=== PATIENT | female | born 1970 | race Caucasian/White ===

== ENCOUNTER 2017-01-28 20:34 | Inpatient (IN) | payer MEDICAID, OTHER ==
[~2017-01-28] VITALS: Ht 147.3 cm; Wt 58.5 kg
[~2017-01-28 20:34] MED LIST: DIVA500T35 PO; DIVA500T69 PO; PALI156D IM
[2017-01-28] MEDS ORDERED: SERT50TA12 PO (20:43)
[2017-01-28 20:57] LABS: BASOPHILS # (AUTO) 0.06 K/uL (0.00-0.20); BASOPHILS % (AUTO) 0.7 % (0.0-2.0); EOSINOPHILS # (AUTO) 0.09 K/uL (0.00-0.70); EOSINOPHILS % (AUTO) 0.95 % (1.0-6.0); HEMATOCRIT 42.1 % (36-46); HEMOGLOBIN 13.9 g/dL (12.0-16.0); LYMPHOCYTES # (AUTO) 1.7 K/uL (1.0-4.8); LYMPHOCYTES % (AUTO) 17.8 % (22.0-44.0); MEAN CORPUSCULAR HEMOGLOBIN 31.5 pg (26.0-34.0); MEAN CORPUSCULAR HGB CONC 33.1 G/dL (31.0-37.0); MEAN CORPUSCULAR VOLUME 95 fL (80-100); MONOCYTES # (AUTO) 0.9 K/uL (0.1-1.0); MONOCYTES % (AUTO) 9.5 % (2.0-9.0); NEUTROPHILS # (AUTO) 6.6 K/uL (1.8-7.7); NEUTROPHILS % (AUTO) 71.1 % (40.0-70.0); PLATELET COUNT (AUTO) 301 K/uL (150-450); RED BLOOD CELL COUNT(AUTO) 4.42 MIL/uL (4.00-5.20); RED CELL DISTRIBUTION WIDTH 12.3 % (11.5-14.5); WHITE BLOOD COUNT (AUTO) 9.3 K/uL (4.5-11.0)
[2017-01-28 21:14] LABS: ANION GAP 7 mmol/L (8-16); CALCIUM, TOTAL 9.5 mg/dL (8.8-10.5); CARBON DIOXIDE 32 mmol/L (22-29); CHLORIDE 104 mmol/L (98-107); CREATININE 0.61 mg/dL (0.60-1.30); GLOMERULAR FILTR. RATE CALC > 60 mL/min (>60); POTASSIUM 4.5 mmol/L (3.5-5.1); SODIUM SERUM 143 mmol/L (136-145); UREA NITROGEN, BLOOD 7 mg/dL (7-18)
[2017-01-28 21:20] LABS: ALANINE AMINOTRANSFERASE 43 U/L (12-78); ALBUMIN 3.8 g/dL (3.4-5.0); ASPARTATE AMINOTRANSFERASE 24 U/L (15-37); BILIRUBIN,TOTAL 0.4 mg/dL (0.1-1.0); TOTAL PROTEIN, SERUM 7.7 g/dL (6.4-8.2); VALPROIC ACID 83 mcg/mL (50-100)
[2017-01-28] MEDS ORDERED: DiphenhydrAMINE HCL 50 MG/ML VIAL IM ONE (22:15)
[2017-01-28] MEDS ORDERED: HALOPERIDOL LACTATE 5 MG/ML VIAL IM ONE (22:15)
[2017-01-28] MEDS ORDERED: LORazepam 2 MG/ML VIAL IM ONE (22:15)
[2017-01-29 00:27] VITALS: BP 132/69
[2017-01-29] MEDS ORDERED: PNEUMOCOCCAL VACCINE POLYVALENT 0.5 ML VIAL [PPSV23] IM ONE (01:15)
[2017-01-29] MEDS ORDERED: DIVALPROEX SODIUM 500 MG DR TABLET PO SCH (09:30)
[2017-01-29] MEDS: LORazepam 2 MG TABLET PO PRN (10:25)
[2017-01-29] MEDS ORDERED: LEVE500T53 PO (10:51)
[2017-01-29] MEDS: VALPROIC ACID 250 MG/5 ML SYRUP UDCUP PO SCH ×2 (12:59→16:17)
[2017-01-29] MEDS ORDERED: VALP5L PO (13:29)
[2017-01-29 16:00] VITALS: BP 114/76
[2017-01-29] MEDS: LevETIRAcetam 500 MG TABLET PO SCH (20:21)
[2017-01-30 06:07] VITALS: BP 127/79
[2017-01-30] MEDS: VALPROIC ACID 250 MG/5 ML SYRUP UDCUP PO SCH ×3 (09:03→16:30)
[2017-01-30 09:16] VITALS: BP 118/76
[2017-01-30 16:12] VITALS: BP 135/86
[2017-01-30] MEDS: LevETIRAcetam 500 MG TABLET PO SCH (20:29)
[2017-01-31 04:31] VITALS: BP 126/76
[2017-01-31 08:48] VITALS: BP 120/83
[2017-01-31] MEDS: VALPROIC ACID 250 MG/5 ML SYRUP UDCUP PO SCH ×3 (08:51→16:04)
[2017-01-31] MEDS: LORazepam 2 MG TABLET PO PRN ×2 (08:51→16:04)
[2017-01-31] MEDS: CHOLECALCIFEROL (VIT D3) 1,000 UNITS TABLET PO SCH (15:02)
[2017-01-31 16:00] VITALS: BP 143/81
[2017-01-31] MEDS: LevETIRAcetam 500 MG TABLET PO SCH (20:19)
[2017-02-01 03:13] VITALS: BP 131/71
[2017-02-01] MEDS: CHOLECALCIFEROL (VIT D3) 1,000 UNITS TABLET PO SCH (08:48)
[2017-02-01] MEDS: LORazepam 2 MG TABLET PO PRN ×2 (08:48→16:13)
[2017-02-01] MEDS: VALPROIC ACID 250 MG/5 ML SYRUP UDCUP PO SCH ×3 (08:48→16:13)
[2017-02-01 09:10] VITALS: BP 131/86
[2017-02-01 16:04] VITALS: BP 133/83
[2017-02-01] MEDS: NYSTATIN 30 GM CREAM TP SCH (17:00)
[2017-02-01] MEDS: LevETIRAcetam 500 MG TABLET PO SCH (20:08)
[2017-02-01] MEDS: ZOLPIDEM TARTRATE 10 MG TABLET PO PRN (21:01)
[2017-02-02] MEDS: CHOLECALCIFEROL (VIT D3) 1,000 UNITS TABLET PO SCH (08:24)
[2017-02-02] MEDS: NYSTATIN 30 GM CREAM TP SCH ×3 (08:24→17:56)
[2017-02-02] MEDS: VALPROIC ACID 250 MG/5 ML SYRUP UDCUP PO SCH ×4 (08:24→17:55)
[2017-02-02] MEDS: LORazepam 2 MG TABLET PO PRN (08:58)
[2017-02-02 10:30] VITALS: BP 123/89
[2017-02-02] MEDS ORDERED: PERMETHRIN 1% 60 ML LOTION TP ONE (12:00)
[2017-02-02 16:24] VITALS: BP 140/82
[2017-02-02] MEDS: LevETIRAcetam 500 MG TABLET PO SCH (20:40)
[2017-02-03 06:23] VITALS: BP 135/80
[2017-02-03 08:23] VITALS: BP 126/83
[2017-02-03] MEDS: NYSTATIN 30 GM CREAM TP SCH ×2 (08:53→16:20)
[2017-02-03] MEDS: CHOLECALCIFEROL (VIT D3) 1,000 UNITS TABLET PO SCH (08:53)
[2017-02-03] MEDS: VALPROIC ACID 250 MG/5 ML SYRUP UDCUP PO SCH ×3 (09:04→16:20)
[2017-02-03] MEDS: LORazepam 2 MG TABLET PO PRN ×2 (09:07→16:17)
[2017-02-03 16:19] VITALS: BP 139/77
[2017-02-03] MEDS: LevETIRAcetam 500 MG TABLET PO SCH (20:15)
[2017-02-03] MEDS: ZOLPIDEM TARTRATE 10 MG TABLET PO PRN (20:52)
[2017-02-04 07:14] VITALS: BP 135/72
[2017-02-04] MEDS: VALPROIC ACID 250 MG/5 ML SYRUP UDCUP PO SCH ×3 (09:05→16:16)
[2017-02-04] MEDS: CHOLECALCIFEROL (VIT D3) 1,000 UNITS TABLET PO SCH (09:05)
[2017-02-04] MEDS: NYSTATIN 30 GM CREAM TP SCH ×2 (09:07→16:17)
[2017-02-04 16:05] VITALS: BP 110/77
[2017-02-04] MEDS: LORazepam 2 MG TABLET PO PRN (16:15)
[2017-02-04] MEDS ORDERED: IVERMECTIN 3 MG TABLET PO ONE (17:30)
[2017-02-04] MEDS: LevETIRAcetam 500 MG TABLET PO SCH (20:16)
[2017-02-04] MEDS: ZOLPIDEM TARTRATE 10 MG TABLET PO PRN (20:58)
[2017-02-05 06:30] VITALS: BP 133/84
[2017-02-05] MEDS: NYSTATIN 30 GM CREAM TP SCH ×2 (08:03→17:08)
[2017-02-05] MEDS: VALPROIC ACID 250 MG/5 ML SYRUP UDCUP PO SCH ×3 (08:03→16:03)
[2017-02-05] MEDS: LORazepam 2 MG TABLET PO PRN ×2 (08:03→16:03)
[2017-02-05] MEDS: HALOPERIDOL 5 MG TABLET PO PRN (08:03)
[2017-02-05] MEDS: CHOLECALCIFEROL (VIT D3) 1,000 UNITS TABLET PO SCH (08:03)
[2017-02-05 08:46] VITALS: BP 107/72
[2017-02-05 16:12] VITALS: BP 123/83
[2017-02-05] MEDS: LevETIRAcetam 500 MG TABLET PO SCH (20:05)
[2017-02-06] MEDS: VALPROIC ACID 250 MG/5 ML SYRUP UDCUP PO SCH ×3 (08:04→16:14)
[2017-02-06] MEDS: CHOLECALCIFEROL (VIT D3) 1,000 UNITS TABLET PO SCH (08:04)
[2017-02-06 08:23] VITALS: BP 116/72
[2017-02-06] MEDS: NYSTATIN 30 GM CREAM TP SCH ×2 (09:09→16:14)
[2017-02-06] MEDS ORDERED: ZOLPIDEM TARTRATE 10 MG TABLET PO PRN (13:45)
[2017-02-06] MEDS ORDERED: LORazepam 2 MG TABLET PO PRN (13:45)
[2017-02-06 16:20] VITALS: BP 112/80
[2017-02-06] MEDS: LevETIRAcetam 500 MG TABLET PO SCH (20:25)
[2017-02-07 07:07] VITALS: BP 115/82
[2017-02-07 08:37] VITALS: BP 136/77
[2017-02-07] MEDS: CHOLECALCIFEROL (VIT D3) 1,000 UNITS TABLET PO SCH (08:55)
[2017-02-07] MEDS: VALPROIC ACID 250 MG/5 ML SYRUP UDCUP PO SCH ×3 (08:55→16:50)
[2017-02-07] MEDS: HALOPERIDOL 5 MG TABLET PO PRN (08:55)
[2017-02-07] MEDS: NYSTATIN 30 GM CREAM TP SCH (08:55)
[2017-02-07] MEDS ORDERED: VITAD1000 PO (11:55)
[2017-02-07] MEDS ORDERED: VALP250 PO (11:55)
== END 2017-02-07 17:05 | disposition home or self-care (01) | DRG 750 ==
LOC: EMS 20:36 → B3A 22:00
PROVIDERS: ADMIT Psychiatry & Neurology Psychiatry; ATTEND Psychiatry & Neurology Psychiatry
DX: F25.9 Schizoaffective disorder, unspecified (principal); R56.9 Unspecified convulsions
CPT/HCPCS: 96372; 99285; G0480; J1200; J1630; J2060

== ENCOUNTER 2017-03-03 20:54 | Inpatient (IN) | payer MEDICAID, OTHER ==
[~2017-03-03] VITALS: Ht 154.9 cm; Wt 58.3 kg
[~2017-03-03 20:54] MED LIST changes: -DIVA500T35 PO; -DIVA500T69 PO; +LEVE500T53 PO; -PALI156D IM; +VALP250 PO; +VITAD1000 PO
[2017-03-03 21:36] LABS: APPEARANCE,URINE CLEAR (CLEAR); GLUCOSE, URINE (UA) NEGATIVE (NEGATIVE); KETONES,URINE NEGATIVE (NEGATIVE); LEUKOCYTE ESTERASE ,URINE SMALL (NEGATIVE); OCCULT BLOOD,URINE NEGATIVE (NEGATIVE); PROTEIN,URINE NEGATIVE (NEGATIVE)
[2017-03-03 21:37] LABS: ADD UA MICROSCOPIC YES
[2017-03-03 21:44] LABS: RBC,URINE 0-2 /HPF (0-2); WBC,URINE 0-2 /HPF (0-5)
[2017-03-03 21:45] LABS: SQUAMOUS EPITHELIAL CELL,UR Rare /LPF (None Seen)
[2017-03-03 22:16] LABS: BASOPHILS # (AUTO) 0.02 K/uL (0.00-0.20); BASOPHILS % (AUTO) 0.2 % (0.0-2.0); EOSINOPHILS # (AUTO) 0.05 K/uL (0.00-0.70); HEMATOCRIT 43.3 % (36-46); HEMOGLOBIN 14.1 g/dL (12.0-16.0); LYMPHOCYTES # (AUTO) 1.4 K/uL (1.0-4.8); LYMPHOCYTES % (AUTO) 15.3 % (22.0-44.0); MEAN CORPUSCULAR HEMOGLOBIN 31.5 pg (26.0-34.0); MEAN CORPUSCULAR HGB CONC 32.6 G/dL (31.0-37.0); MEAN CORPUSCULAR VOLUME 97 fL (80-100); MONOCYTES # (AUTO) 0.7 K/uL (0.1-1.0); MONOCYTES % (AUTO) 8.2 % (2.0-9.0); NEUTROPHILS # (AUTO) 6.7 K/uL (1.8-7.7); NEUTROPHILS % (AUTO) 75.8 % (40.0-70.0); PLATELET COUNT (AUTO) 173 K/uL (150-450); RED BLOOD CELL COUNT(AUTO) 4.47 MIL/uL (4.00-5.20); RED CELL DISTRIBUTION WIDTH 13.1 % (11.5-14.5); WHITE BLOOD COUNT (AUTO) 8.8 K/uL (4.5-11.0)
[2017-03-03 22:26] LABS: ANION GAP 7 mmol/L (8-16); CALCIUM, TOTAL 9.1 mg/dL (8.8-10.5); CARBON DIOXIDE 31 mmol/L (22-29); CHLORIDE 107 mmol/L (98-107); GLOMERULAR FILTR. RATE CALC > 60 mL/min (>60); POTASSIUM 4.8 mmol/L (3.5-5.1); SODIUM SERUM 145 mmol/L (136-145); UREA NITROGEN, BLOOD 16 mg/dL (7-18)
[2017-03-03 22:32] LABS: ALANINE AMINOTRANSFERASE 18 U/L (12-78); ALBUMIN 3.7 g/dL (3.4-5.0); ASPARTATE AMINOTRANSFERASE 11 U/L (15-37); BILIRUBIN,TOTAL 0.3 mg/dL (0.1-1.0); TOTAL PROTEIN, SERUM 7.2 g/dL (6.4-8.2); VALPROIC ACID 60 mcg/mL (50-100)
[2017-03-03] MEDS ORDERED: HALOPERIDOL LACTATE 5 MG/ML VIAL IM ONE (23:00)
[2017-03-03] MEDS ORDERED: DiphenhydrAMINE HCL 50 MG/ML VIAL IM ONE (23:00)
[2017-03-03] MEDS ORDERED: LORazepam 2 MG/ML VIAL IM ONE (23:00)
[2017-03-04 00:08] VITALS: BP 137/89
[2017-03-04] MEDS ORDERED: VALPROIC ACID 250 MG CAPSULE PO SCH (09:00)
[2017-03-04 09:03] LABS: CHOL/HDL RATIO 3.1 (3.9-5.7)
[2017-03-04 12:04] VITALS: BP 130/82
[2017-03-04] MEDS ORDERED: IBUPROFEN 400 MG TABLET PO PRN (14:15)
[2017-03-04] MEDS ORDERED: ACETAMINOPHEN 325 MG TABLET PO PRN (14:15)
[2017-03-04 17:06] VITALS: BP 132/81
[2017-03-04] MEDS: VALPROIC ACID 250 MG CAPSULE PO SCH (17:17)
[2017-03-04 20:07] VITALS: BP 117/74
[2017-03-04] MEDS ORDERED: LevETIRAcetam 500 MG TABLET PO SCH (21:00)
[2017-03-04] MEDS: LevETIRAcetam 500 MG TABLET PO SCH (22:01)
[2017-03-04] MEDS: ZOLPIDEM TARTRATE 10 MG TABLET PO PRN (23:45)
[2017-03-05] MEDS ORDERED: PNEUMOCOCCAL VACCINE POLYVALENT 0.5 ML VIAL [PPSV23] IM ONE (04:15)
[2017-03-05 06:44] VITALS: BP 123/73
[2017-03-05 07:01] LABS: HEMOGLOBIN A1C 5.3 % (4.5-6.2)
[2017-03-05 07:24] LABS: THYROID STIMULATING HORMONE 4.24 uIU/mL (0.36-3.74)
[2017-03-05] MEDS: VALPROIC ACID 250 MG CAPSULE PO SCH ×3 (09:48→16:54)
[2017-03-05] MEDS: CHOLECALCIFEROL (VIT D3) 2,000 UNITS TABLET PO SCH (09:48)
[2017-03-05 16:00] VITALS: BP 128/88
[2017-03-05] MEDS: LevETIRAcetam 500 MG TABLET PO SCH (20:40)
[2017-03-06 00:01] VITALS: BP 140/78
[2017-03-06] MEDS: ZOLPIDEM TARTRATE 10 MG TABLET PO PRN ×2 (00:03→23:45)
[2017-03-06 08:30] VITALS: BP 136/86
[2017-03-06] MEDS: VALPROIC ACID 250 MG CAPSULE PO SCH ×3 (09:13→17:24)
[2017-03-06] MEDS: CHOLECALCIFEROL (VIT D3) 2,000 UNITS TABLET PO SCH (09:13)
[2017-03-06 17:38] VITALS: BP 120/75
[2017-03-06] MEDS: LevETIRAcetam 500 MG TABLET PO SCH (20:20)
[2017-03-07 08:00] VITALS: BP 139/88
[2017-03-07] MEDS: CHOLECALCIFEROL (VIT D3) 2,000 UNITS TABLET PO SCH (08:00)
[2017-03-07] MEDS: VALPROIC ACID 250 MG CAPSULE PO SCH ×3 (08:00→17:22)
[2017-03-07] MEDS: LORazepam 2 MG TABLET PO PRN ×2 (09:59→18:45)
[2017-03-07 16:00] VITALS: BP 112/60
[2017-03-07] MEDS: HALOPERIDOL 5 MG TABLET PO PRN (18:45)
[2017-03-07] MEDS: LevETIRAcetam 500 MG TABLET PO SCH (20:04)
[2017-03-08] MEDS: CHOLECALCIFEROL (VIT D3) 2,000 UNITS TABLET PO SCH (09:23)
[2017-03-08] MEDS: VALPROIC ACID 250 MG CAPSULE PO SCH ×3 (09:23→17:57)
[2017-03-08 10:39] VITALS: BP 124/78
[2017-03-08 20:10] VITALS: BP 128/78
[2017-03-08] MEDS: LevETIRAcetam 500 MG TABLET PO SCH (20:48)
[2017-03-09 05:34] VITALS: BP 116/79
[2017-03-09] MEDS: CHOLECALCIFEROL (VIT D3) 2,000 UNITS TABLET PO SCH (09:06)
[2017-03-09] MEDS: VALPROIC ACID 250 MG CAPSULE PO SCH ×2 (09:06→12:53)
[2017-03-09 16:26] VITALS: BP 113/69
[2017-03-09] MEDS: VALPROIC ACID 250 MG/5 ML SYRUP UDCUP PO SCH ×2 (20:15→20:21)
[2017-03-09] MEDS: LevETIRAcetam 500 MG TABLET PO SCH ×2 (20:21→20:47)
[2017-03-10] MEDS: ZOLPIDEM TARTRATE 10 MG TABLET PO PRN (01:24)
[2017-03-10 01:26] VITALS: BP 125/88
[2017-03-10 08:00] VITALS: BP 124/83
[2017-03-10] MEDS: LORazepam 2 MG TABLET PO PRN (08:18)
[2017-03-10] MEDS: CHOLECALCIFEROL (VIT D3) 2,000 UNITS TABLET PO SCH (08:18)
[2017-03-10] MEDS: VALPROIC ACID 250 MG/5 ML SYRUP UDCUP PO SCH ×3 (08:20→16:41)
[2017-03-10 09:06] VITALS: BP 124/83
[2017-03-10 16:03] VITALS: BP 124/84
[2017-03-10] MEDS: LevETIRAcetam 500 MG TABLET PO SCH (20:25)
[2017-03-11 08:00] VITALS: BP 119/71
[2017-03-11] MEDS: VALPROIC ACID 250 MG/5 ML SYRUP UDCUP PO SCH ×4 (09:00→16:15)
[2017-03-11] MEDS: LORazepam 2 MG TABLET PO PRN (09:57)
[2017-03-11] MEDS: HALOPERIDOL 5 MG TABLET PO PRN (09:57)
[2017-03-11] MEDS: CHOLECALCIFEROL (VIT D3) 2,000 UNITS TABLET PO SCH (09:57)
[2017-03-11 16:27] VITALS: BP 115/76
[2017-03-11] MEDS: LevETIRAcetam 500 MG TABLET PO SCH (21:37)
[2017-03-12 00:47] VITALS: BP 102/66
[2017-03-12] MEDS: VALPROIC ACID 250 MG/5 ML SYRUP UDCUP PO SCH ×3 (07:56→16:22)
[2017-03-12 08:00] VITALS: BP 106/68
[2017-03-12] MEDS: CHOLECALCIFEROL (VIT D3) 2,000 UNITS TABLET PO SCH (11:51)
[2017-03-12 16:06] VITALS: BP 127/72
[2017-03-12] MEDS: LevETIRAcetam 500 MG TABLET PO SCH (20:16)
[2017-03-12] MEDS: ZOLPIDEM TARTRATE 10 MG TABLET PO PRN (23:57)
[2017-03-13 08:28] VITALS: BP 132/72
[2017-03-13] MEDS: VALPROIC ACID 250 MG/5 ML SYRUP UDCUP PO SCH ×3 (08:29→16:25)
[2017-03-13] MEDS: CHOLECALCIFEROL (VIT D3) 2,000 UNITS TABLET PO SCH (12:27)
[2017-03-13 16:10] VITALS: BP 120/82
[2017-03-13] MEDS: LevETIRAcetam 500 MG TABLET PO SCH (20:37)
[2017-03-14] MEDS: CHOLECALCIFEROL (VIT D3) 2,000 UNITS TABLET PO SCH (08:52)
[2017-03-14] MEDS: VALPROIC ACID 250 MG/5 ML SYRUP UDCUP PO SCH ×2 (08:52→12:32)
[2017-03-14 09:21] VITALS: BP 127/83
[2017-03-14] MEDS ORDERED: VALP5L PO (14:05)
== END 2017-03-14 15:20 | disposition home or self-care (01) | DRG 751 ==
LOC: EMS 20:55 → AHU 03-04 11:27 → 3EC 03-04 18:30
PROVIDERS: ADMIT Psychiatry & Neurology Psychiatry; ATTEND Psychiatry & Neurology Psychiatry
DX: F29 Unspecified psychosis not due to a substance or known physiological condition (principal); R56.9 Unspecified convulsions; F79 Unspecified intellectual disabilities; E55.9 Vitamin D deficiency, unspecified; J44.9 Chronic obstructive pulmonary disease, unspecified; I10 Essential (primary) hypertension
CPT/HCPCS: 83036; 84443; 87081; 96372; 99285; G0480; J1200; J1630; J2060

== ENCOUNTER 2017-05-31 20:31 | Inpatient (IN) | payer MEDICAID, OTHER ==
[~2017-05-31] VITALS: Ht 149.9 cm; Wt 52.3 kg
[~2017-05-31 20:31] MED LIST changes: +LEVO25TA9 PO; -VALP250 PO; +VALP250S23 PO
[2017-05-31 21:28] LABS: BASOPHILS # (AUTO) 0.03 K/uL (0.00-0.20); BASOPHILS % (AUTO) 0.3 % (0.0-2.0); EOSINOPHILS # (AUTO) 0.07 K/uL (0.00-0.70); EOSINOPHILS % (AUTO) 0.79 % (1.0-6.0); HEMATOCRIT 39.8 % (36-46); HEMOGLOBIN 13.5 g/dL (12.0-16.0); LYMPHOCYTES # (AUTO) 1.5 K/uL (1.0-4.8); LYMPHOCYTES % (AUTO) 16.2 % (22.0-44.0); MEAN CORPUSCULAR HEMOGLOBIN 33.7 pg (26.0-34.0); MEAN CORPUSCULAR HGB CONC 33.8 G/dL (31.0-37.0); MEAN CORPUSCULAR VOLUME 100 fL (80-100); MONOCYTES # (AUTO) 0.9 K/uL (0.1-1.0); MONOCYTES % (AUTO) 9.9 % (2.0-9.0); NEUTROPHILS # (AUTO) 6.9 K/uL (1.8-7.7); NEUTROPHILS % (AUTO) 72.8 % (40.0-70.0); PLATELET COUNT (AUTO) 173 K/uL (150-450); RED BLOOD CELL COUNT(AUTO) 3.99 MIL/uL (4.00-5.20); RED CELL DISTRIBUTION WIDTH 14.3 % (11.5-14.5); WHITE BLOOD COUNT (AUTO) 9.4 K/uL (4.5-11.0)
[2017-05-31 21:31] LABS: ANION GAP 7 mmol/L (8-16); CARBON DIOXIDE 31 mmol/L (22-29); CHLORIDE 104 mmol/L (98-107); GLOMERULAR FILTR. RATE CALC > 60 mL/min (>60); POTASSIUM 4.2 mmol/L (3.5-5.1); SODIUM SERUM 142 mmol/L (136-145); UREA NITROGEN, BLOOD 8 mg/dL (7-18)
[2017-05-31 21:32] LABS: CALCIUM, TOTAL 8.9 mg/dL (8.8-10.5)
[2017-05-31 21:38] LABS: ALANINE AMINOTRANSFERASE 34 U/L (12-78); ALBUMIN 3.7 g/dL (3.4-5.0); ASPARTATE AMINOTRANSFERASE 23 U/L (15-37); BILIRUBIN,TOTAL 0.4 mg/dL (0.1-1.0); VALPROIC ACID 68 mcg/mL (50-100)
[2017-05-31] MEDS ORDERED: LORazepam 2 MG/ML VIAL IM ONE (22:45)
[2017-06-01] MEDS: VALPROIC ACID 250 MG CAPSULE PO SCH ×3 (08:16→21:00)
[2017-06-01] MEDS: LevETIRAcetam 500 MG TABLET PO SCH ×2 (09:16→21:00)
[2017-06-02 00:58] VITALS: BP 119/79
[2017-06-02] MEDS: HALOPERIDOL 5 MG TABLET PO PRN ×2 (07:45→15:50)
[2017-06-02] MEDS: LORazepam 2 MG TABLET PO PRN ×2 (07:45→16:40)
[2017-06-02 08:15] VITALS: BP 123/69
[2017-06-02] MEDS ORDERED: IBUPROFEN 600 MG TABLET PO PRN (08:30)
[2017-06-02] MEDS ORDERED: ALBUTEROL SULFATE HFA 90 MCG/PUFF 8 GM INHALER IH PRN (08:30)
[2017-06-02] MEDS ORDERED: ONDANSETRON HCL 4 MG TABLET PO PRN (08:30)
[2017-06-02] MEDS ORDERED: ACETAMINOPHEN 325 MG TABLET PO PRN (08:30)
[2017-06-02] MEDS ORDERED: CloNIDine HCL 0.1 MG TABLET PO PRN (08:30)
[2017-06-02] MEDS ORDERED: LOPERAMIDE HCL 2 MG CAPSULE PO PRN (08:30)
[2017-06-02] MEDS ORDERED: MAG HYDROX/AL HYDROX/SIMETH ES 30 ML SUSPENSION UDCUP PO PRN (08:30)
[2017-06-02] MEDS ORDERED: PETROLATUM,WHITE 71 GM JELLY TP PRN (08:30)
[2017-06-02] MEDS ORDERED: BACITRACIN 28.4 GM OINTMENT TP PRN (08:30)
[2017-06-02] MEDS ORDERED: BENZOCAINE/MENTHOL LOZENGE [8 LOZENGES/PACKET] MM PRN (08:45)
[2017-06-02] MEDS: VALPROIC ACID 250 MG CAPSULE PO SCH ×3 (09:00→15:48)
[2017-06-02] MEDS: LevETIRAcetam 500 MG TABLET PO SCH ×2 (09:00→15:50)
[2017-06-02] MEDS: CHOLECALCIFEROL (VIT D3) 1,000 UNITS TABLET PO SCH (11:32)
[2017-06-02 16:40] VITALS: BP 123/76
[2017-06-02] MEDS: RisperiDONE 2 MG TABLET PO SCH (21:13)
[2017-06-03] MEDS: LEVOTHYROXINE SODIUM 25 MCG TABLET PO SCH (07:05)
[2017-06-03 08:00] VITALS: BP 124/74
[2017-06-03] MEDS: LevETIRAcetam 500 MG TABLET PO SCH ×2 (08:17→17:19)
[2017-06-03] MEDS: RisperiDONE 2 MG TABLET PO SCH ×2 (08:17→17:18)
[2017-06-03] MEDS: VALPROIC ACID 250 MG CAPSULE PO SCH ×3 (08:17→17:18)
[2017-06-03] MEDS: CHOLECALCIFEROL (VIT D3) 1,000 UNITS TABLET PO SCH (08:17)
[2017-06-03] MEDS: LORazepam 2 MG TABLET PO PRN (17:18)
[2017-06-04] MEDS: LORazepam 2 MG TABLET PO PRN ×2 (06:47→12:14)
[2017-06-04] MEDS: LEVOTHYROXINE SODIUM 25 MCG TABLET PO SCH (06:48)
[2017-06-04] MEDS: RisperiDONE 2 MG TABLET PO SCH ×2 (09:00→17:49)
[2017-06-04] MEDS: VALPROIC ACID 250 MG CAPSULE PO SCH ×3 (09:00→17:49)
[2017-06-04] MEDS: CHOLECALCIFEROL (VIT D3) 1,000 UNITS TABLET PO SCH (09:00)
[2017-06-04] MEDS: LevETIRAcetam 500 MG TABLET PO SCH ×2 (09:00→17:49)
[2017-06-04] MEDS: HALOPERIDOL 5 MG TABLET PO PRN (12:15)
[2017-06-04 13:52] VITALS: BP 130/88
[2017-06-04 16:09] VITALS: BP 75/76
[2017-06-05] MEDS: LEVOTHYROXINE SODIUM 25 MCG TABLET PO SCH (07:00)
[2017-06-05] MEDS: VALPROIC ACID 250 MG CAPSULE PO SCH ×3 (08:10→18:28)
[2017-06-05] MEDS: CHOLECALCIFEROL (VIT D3) 1,000 UNITS TABLET PO SCH (08:11)
[2017-06-05] MEDS: LevETIRAcetam 500 MG TABLET PO SCH ×2 (08:11→18:27)
[2017-06-05] MEDS: HALOPERIDOL 5 MG TABLET PO PRN (08:12)
[2017-06-05] MEDS: LORazepam 2 MG TABLET PO PRN (08:12)
[2017-06-05] MEDS: RisperiDONE 2 MG TABLET PO SCH ×2 (08:12→18:28)
[2017-06-05 09:03] VITALS: BP 126/79
[2017-06-05] MEDS: MAGNESIUM HYDROXIDE SUSPENSION 30 ML UDCUP PO PRN (15:00)
[2017-06-05 16:44] VITALS: BP 77/77
[2017-06-06] MEDS: ZOLPIDEM TARTRATE 10 MG TABLET PO PRN (00:56)
[2017-06-06] MEDS: LEVOTHYROXINE SODIUM 25 MCG TABLET PO SCH (07:06)
[2017-06-06] MEDS: RisperiDONE 2 MG TABLET PO SCH ×2 (08:07→16:52)
[2017-06-06] MEDS: LevETIRAcetam 500 MG TABLET PO SCH ×2 (08:07→16:52)
[2017-06-06] MEDS: CHOLECALCIFEROL (VIT D3) 1,000 UNITS TABLET PO SCH (08:07)
[2017-06-06] MEDS: VALPROIC ACID 250 MG CAPSULE PO SCH ×3 (08:07→16:52)
[2017-06-06 08:17] VITALS: BP 114/70
[2017-06-06 16:15] VITALS: BP 105/63
[2017-06-07] MEDS: LEVOTHYROXINE SODIUM 25 MCG TABLET PO SCH (06:17)
[2017-06-07] MEDS: VALPROIC ACID 250 MG CAPSULE PO SCH ×3 (09:09→18:09)
[2017-06-07] MEDS: RisperiDONE 2 MG TABLET PO SCH ×2 (09:09→18:09)
[2017-06-07] MEDS: CHOLECALCIFEROL (VIT D3) 1,000 UNITS TABLET PO SCH (09:09)
[2017-06-07] MEDS: LevETIRAcetam 500 MG TABLET PO SCH ×2 (09:10→18:09)
[2017-06-07 09:33] VITALS: BP 115/71
[2017-06-07 16:00] VITALS: BP 114/70
[2017-06-08] MEDS: LEVOTHYROXINE SODIUM 25 MCG TABLET PO SCH (06:35)
[2017-06-08 08:19] VITALS: BP 120/74
[2017-06-08] MEDS: VALPROIC ACID 250 MG CAPSULE PO SCH ×3 (08:21→16:59)
[2017-06-08] MEDS: LevETIRAcetam 500 MG TABLET PO SCH ×2 (08:21→16:59)
[2017-06-08] MEDS: CHOLECALCIFEROL (VIT D3) 1,000 UNITS TABLET PO SCH (08:21)
[2017-06-08] MEDS: LORazepam 2 MG TABLET PO PRN (08:22)
[2017-06-08] MEDS: RisperiDONE 3 MG TABLET PO SCH ×2 (08:22→17:03)
[2017-06-08 16:00] VITALS: BP 100/66
[2017-06-09] MEDS: LEVOTHYROXINE SODIUM 25 MCG TABLET PO SCH (07:03)
[2017-06-09] MEDS: VALPROIC ACID 250 MG CAPSULE PO SCH ×3 (08:15→16:51)
[2017-06-09] MEDS: CHOLECALCIFEROL (VIT D3) 1,000 UNITS TABLET PO SCH (08:16)
[2017-06-09] MEDS: RisperiDONE 3 MG TABLET PO SCH ×2 (08:16→16:51)
[2017-06-09] MEDS: LevETIRAcetam 500 MG TABLET PO SCH ×2 (08:16→16:51)
[2017-06-09 09:33] VITALS: BP 116/68
[2017-06-09] MEDS: LORazepam 2 MG TABLET PO PRN (09:48)
[2017-06-09] MEDS: HALOPERIDOL 5 MG TABLET PO PRN (10:21)
[2017-06-09 18:58] VITALS: BP 105/71
[2017-06-10] MEDS: LORazepam 2 MG TABLET PO PRN ×2 (06:43→10:57)
[2017-06-10] MEDS: HALOPERIDOL 5 MG TABLET PO PRN ×2 (06:43→10:58)
[2017-06-10] MEDS: LEVOTHYROXINE SODIUM 25 MCG TABLET PO SCH (06:58)
[2017-06-10] MEDS: LevETIRAcetam 500 MG TABLET PO SCH ×2 (08:29→16:41)
[2017-06-10] MEDS: RisperiDONE 3 MG TABLET PO SCH ×2 (08:29→16:42)
[2017-06-10] MEDS: CHOLECALCIFEROL (VIT D3) 1,000 UNITS TABLET PO SCH (08:29)
[2017-06-10] MEDS: VALPROIC ACID 250 MG CAPSULE PO SCH ×3 (08:29→16:42)
[2017-06-10 08:37] VITALS: BP 132/76
[2017-06-10 16:08] VITALS: BP 124/71
[2017-06-11] MEDS: LEVOTHYROXINE SODIUM 25 MCG TABLET PO SCH (06:14)
[2017-06-11 08:00] VITALS: BP 114/86
[2017-06-11] MEDS: RisperiDONE 3 MG TABLET PO SCH ×2 (08:10→18:09)
[2017-06-11] MEDS: CHOLECALCIFEROL (VIT D3) 1,000 UNITS TABLET PO SCH (08:10)
[2017-06-11] MEDS: VALPROIC ACID 250 MG CAPSULE PO SCH (08:10)
[2017-06-11] MEDS: LevETIRAcetam 500 MG TABLET PO SCH ×2 (08:10→18:09)
[2017-06-11] MEDS: VALPROIC ACID 250 MG/5 ML SYRUP UDCUP PO SCH ×2 (13:20→17:00)
[2017-06-11] MEDS: LORazepam 2 MG TABLET PO PRN (18:09)
[2017-06-11 18:50] VITALS: BP 116/79
[2017-06-12] MEDS: LORazepam 2 MG TABLET PO PRN (05:41)
[2017-06-12] MEDS: LEVOTHYROXINE SODIUM 25 MCG TABLET PO SCH (06:48)
[2017-06-12 08:13] VITALS: BP 111/71
[2017-06-12] MEDS: RisperiDONE 3 MG TABLET PO SCH ×2 (08:43→16:40)
[2017-06-12] MEDS: CHOLECALCIFEROL (VIT D3) 1,000 UNITS TABLET PO SCH (08:43)
[2017-06-12] MEDS: LevETIRAcetam 500 MG TABLET PO SCH ×2 (08:43→16:39)
[2017-06-12] MEDS: VALPROIC ACID 250 MG/5 ML SYRUP UDCUP PO SCH ×3 (08:43→16:39)
[2017-06-12 16:45] VITALS: BP 121/69
[2017-06-13] MEDS: LEVOTHYROXINE SODIUM 25 MCG TABLET PO SCH (06:49)
[2017-06-13 08:00] VITALS: BP 101/66
[2017-06-13] MEDS: LevETIRAcetam 500 MG TABLET PO SCH ×2 (08:10→17:49)
[2017-06-13] MEDS: HALOPERIDOL 5 MG TABLET PO PRN (08:10)
[2017-06-13] MEDS: CHOLECALCIFEROL (VIT D3) 1,000 UNITS TABLET PO SCH (08:11)
[2017-06-13] MEDS: VALPROIC ACID 250 MG/5 ML SYRUP UDCUP PO SCH ×3 (08:11→17:00)
[2017-06-13] MEDS: LORazepam 2 MG TABLET PO PRN (08:11)
[2017-06-13] MEDS: RisperiDONE 3 MG TABLET PO SCH ×2 (08:11→17:49)
[2017-06-13 16:02] VITALS: BP 100/66
[2017-06-14] MEDS: LEVOTHYROXINE SODIUM 25 MCG TABLET PO SCH (06:31)
[2017-06-14] MEDS: LevETIRAcetam 500 MG TABLET PO SCH ×2 (08:32→18:31)
[2017-06-14] MEDS: CHOLECALCIFEROL (VIT D3) 1,000 UNITS TABLET PO SCH (08:32)
[2017-06-14] MEDS: RisperiDONE 3 MG TABLET PO SCH ×2 (08:32→18:31)
[2017-06-14] MEDS: VALPROIC ACID 250 MG/5 ML SYRUP UDCUP PO SCH ×3 (09:00→18:30)
[2017-06-14 12:10] VITALS: BP 105/62
[2017-06-14 16:16] VITALS: BP 112/62
[2017-06-15] MEDS: ZOLPIDEM TARTRATE 10 MG TABLET PO PRN (02:28)
[2017-06-15] MEDS: LEVOTHYROXINE SODIUM 25 MCG TABLET PO SCH (07:04)
[2017-06-15 08:00] VITALS: BP 111/67
[2017-06-15] MEDS: VALPROIC ACID 250 MG/5 ML SYRUP UDCUP PO SCH ×3 (08:40→17:32)
[2017-06-15] MEDS: CHOLECALCIFEROL (VIT D3) 1,000 UNITS TABLET PO SCH (08:41)
[2017-06-15] MEDS: LevETIRAcetam 500 MG TABLET PO SCH ×2 (08:41→17:32)
[2017-06-15] MEDS: LORazepam 2 MG TABLET PO PRN ×2 (08:41→17:32)
[2017-06-15] MEDS: HALOPERIDOL 5 MG TABLET PO PRN (08:41)
[2017-06-15] MEDS: RisperiDONE 3 MG TABLET PO SCH ×2 (08:41→17:32)
[2017-06-15] MEDS: MAGNESIUM HYDROXIDE SUSPENSION 30 ML UDCUP PO PRN (08:42)
[2017-06-15 16:19] VITALS: BP 104/67
[2017-06-16] MEDS: LORazepam 2 MG TABLET PO PRN ×2 (05:36→11:01)
[2017-06-16] MEDS: LEVOTHYROXINE SODIUM 25 MCG TABLET PO SCH (06:58)
[2017-06-16 08:34] VITALS: BP 125/73
[2017-06-16] MEDS: RisperiDONE 3 MG TABLET PO SCH (09:10)
[2017-06-16] MEDS: LevETIRAcetam 500 MG TABLET PO SCH (09:10)
[2017-06-16] MEDS: VALPROIC ACID 250 MG/5 ML SYRUP UDCUP PO SCH ×2 (09:10→13:45)
[2017-06-16] MEDS: CHOLECALCIFEROL (VIT D3) 1,000 UNITS TABLET PO SCH (09:11)
[2017-06-16] MEDS ORDERED: RISP3 PO (09:36)
[2017-06-16] MEDS: HALOPERIDOL 5 MG TABLET PO PRN (11:01)
[2017-06-16 15:30] VITALS: BP 100/64
== END 2017-06-16 15:45 | disposition home or self-care (01) | DRG 750 ==
LOC: EEVIPCON 20:34 → EMS 20:34 → 3EC 06-01 22:00
PROVIDERS: ADMIT Psychiatry & Neurology Psychiatry; ATTEND Psychiatry & Neurology Psychiatry
DX: F25.9 Schizoaffective disorder, unspecified (principal); R45.851 Suicidal ideations; R47.01 Aphasia; G40.909 Epilepsy, unspecified, not intractable, without status epilepticus; I10 Essential (primary) hypertension; E55.9 Vitamin D deficiency, unspecified; E03.9 Hypothyroidism, unspecified; G47.00 Insomnia, unspecified; J44.9 Chronic obstructive pulmonary disease, unspecified; K59.00 Constipation, unspecified
CPT/HCPCS: 87081; 96372; 99285; G0480; J2060

== ENCOUNTER 2017-06-28 10:06 | Emergency (ER) | payer MEDICAID, OTHER ==
[~2017-06-28] VITALS: Ht 152.4 cm; Wt 63.5 kg
[~2017-06-28 10:06] MED LIST changes: +RISP3 PO
[2017-06-28] MEDS ORDERED: LORazepam 2 MG/ML VIAL ONE (11:00)
[2017-06-28] MEDS ORDERED: DiphenhydrAMINE HCL 50 MG/ML VIAL ONE (11:01)
[2017-06-28] MEDS ORDERED: HALOPERIDOL LACTATE 5 MG/ML VIAL ONE (11:01)
[2017-06-28] MEDS ORDERED: DiphenhydrAMINE HCL 50 MG/ML VIAL IM ONE (11:30)
[2017-06-28] MEDS ORDERED: LORazepam 2 MG/ML VIAL IM ONE (11:30)
[2017-06-28] MEDS ORDERED: HALOPERIDOL LACTATE 5 MG/ML VIAL IM ONE (11:30)
[2017-06-28 12:15] LABS: BASOPHILS % (AUTO) 0.3 % (0.0-2.0); EOSINOPHILS % (AUTO) 0.1 % (1.0-6.0); HEMATOCRIT 37.4 % (36-46); HEMOGLOBIN 12.6 g/dL (12.0-16.0); LYMPHOCYTES # (AUTO) 1.2 K/uL (1.0-4.8); LYMPHOCYTES % (AUTO) 13.7 % (22.0-44.0); MEAN CORPUSCULAR HEMOGLOBIN 34.1 pg (26.0-34.0); MEAN CORPUSCULAR HGB CONC 33.8 G/dL (31.0-37.0); MEAN CORPUSCULAR VOLUME 101 fL (80-100); MONOCYTES # (AUTO) 0.6 K/uL (0.1-1.0); NEUTROPHILS # (AUTO) 7.1 K/uL (1.8-7.7); NEUTROPHILS % (AUTO) 78.9 % (40.0-70.0); PLATELET COUNT (AUTO) 240 K/uL (150-450); RED CELL DISTRIBUTION WIDTH 13.1 % (11.5-14.5)
[2017-06-28 12:31] LABS: ANION GAP 10 mmol/L (8-16); CALCIUM, TOTAL 8.9 mg/dL (8.8-10.5); CARBON DIOXIDE 28 mmol/L (22-29); CHLORIDE 104 mmol/L (98-107); CREATININE 0.67 mg/dL (0.60-1.30); GLOMERULAR FILTR. RATE CALC > 60 mL/min (>60); POTASSIUM 4.1 mmol/L (3.5-5.1); SODIUM SERUM 142 mmol/L (136-145); UREA NITROGEN, BLOOD 8 mg/dL (7-18)
[2017-06-28 12:36] LABS: ALANINE AMINOTRANSFERASE 48 U/L (12-78); ALBUMIN 3.5 g/dL (3.4-5.0); ASPARTATE AMINOTRANSFERASE 21 U/L (15-37); BILIRUBIN,TOTAL 0.3 mg/dL (0.1-1.0); TOTAL PROTEIN, SERUM 6.9 g/dL (6.4-8.2)
[2017-06-28 12:40] LABS: RBC MORPHOLOGY COMMENT ABNORMAL RBC MORPH
[2017-06-28 13:02] LABS: THYROID STIMULATING HORMONE 1.75 uIU/mL (0.36-3.74)
[2017-06-28 14:27] VITALS: BP 122/86
== END 2017-06-28 14:51 | disposition home or self-care (01) ==
LOC: EMS 10:10
DX: F20.0 Paranoid schizophrenia (principal); F91.8 Other conduct disorders; I10 Essential (primary) hypertension
CPT/HCPCS: 36415; 80053; 80307; 84443; 84703; 85025; 96372; 99284; G0480; J1200; J1630; J2060

== ENCOUNTER 2017-08-15 11:29 | Emergency (ER) | payer OTHER ==
[~2017-08-15] VITALS: Ht 160 cm; Wt 63.6 kg
[2017-08-15] MEDS ORDERED: SERT50TA12 PO (11:45)
[2017-08-15] MEDS ORDERED: ZOLP10TA7 PO (11:45)
[2017-08-15] MEDS ORDERED: QUET200T PO (11:45)
[2017-08-15] MEDS ORDERED: LORA2TAB2 PO (11:45)
[2017-08-15 12:35] LABS: BASOPHILS % (AUTO) 0.2 % (0.0-2.0); EOSINOPHILS % (AUTO) 0.1 % (1.0-6.0); HEMATOCRIT 39.4 % (36-46); HEMOGLOBIN 13.4 g/dL (12.0-16.0); LYMPHOCYTES # (AUTO) 1.1 K/uL (1.0-4.8); LYMPHOCYTES % (AUTO) 10.1 % (22.0-44.0); MEAN CORPUSCULAR HEMOGLOBIN 32.8 pg (26.0-34.0); MEAN CORPUSCULAR HGB CONC 34.1 G/dL (31.0-37.0); MEAN CORPUSCULAR VOLUME 96 fL (80-100); MONOCYTES % (AUTO) 9.6 % (2.0-9.0); NEUTROPHILS # (AUTO) 8.6 K/uL (1.8-7.7); PLATELET COUNT (AUTO) 188 K/uL (150-450); RED CELL DISTRIBUTION WIDTH 12.3 % (11.5-14.5); WHITE BLOOD COUNT (AUTO) 10.8 K/uL (4.5-11.0)
[2017-08-15 12:47] LABS: ANION GAP 11 mmol/L (8-16); CALCIUM, TOTAL 9.2 mg/dL (8.8-10.5); CARBON DIOXIDE 26 mmol/L (22-29); CHLORIDE 101 mmol/L (98-107); GLOMERULAR FILTR. RATE CALC > 60 mL/min (>60); POTASSIUM 3.3 mmol/L (3.5-5.1); SODIUM SERUM 138 mmol/L (136-145); UREA NITROGEN, BLOOD 15 mg/dL (7-18)
[2017-08-15 12:53] LABS: ALANINE AMINOTRANSFERASE 23 U/L (12-78); ALBUMIN 3.9 g/dL (3.4-5.0); ASPARTATE AMINOTRANSFERASE 19 U/L (15-37); BILIRUBIN,TOTAL 0.4 mg/dL (0.1-1.0); TOTAL PROTEIN, SERUM 7.1 g/dL (6.4-8.2); VALPROIC ACID 79 mcg/mL (50-100)
[2017-08-15] MEDS ORDERED: LORazepam 2 MG TABLET PO ONE (13:00)
[2017-08-15] MEDS ORDERED: HALOPERIDOL 5 MG TABLET PO ONE (13:00)
[2017-08-15] MEDS ORDERED: DiphenhydrAMINE HCL 50 MG CAPSULE PO ONE (13:00)
[2017-08-15 19:04] VITALS: BP 124/55
== END 2017-08-15 19:07 | disposition home or self-care (01) ==
LOC: EMS 11:30
DX: F20.0 Paranoid schizophrenia (principal); I10 Essential (primary) hypertension
CPT/HCPCS: 99284; G0480

== ENCOUNTER 2017-12-30 18:39 | Inpatient (IN) | payer OTHER ==
[~2017-12-30] VITALS: Ht 160 cm; Wt 47.9 kg
[~2017-12-30 18:39] MED LIST changes: +LORA2TAB2 PO; +QUET200T PO; +SERT50TA12 PO; +ZOLP10TA7 PO
[2017-12-30] MEDS ORDERED: TEMA7.5C17 PO (18:56)
[2017-12-30] MEDS ORDERED: BUSP5TAB20 PO (18:56)
[2017-12-30] MEDS ORDERED: QUET25TA PO (18:56)
[2017-12-30] MEDS ORDERED: LORazepam 2 MG/ML VIAL IVP ONE (19:00)
[2017-12-30] MEDS ORDERED: LevETIRAcetam 500 MG in DEXTROSE 5%-WATER 100 ML IV ONE (19:45)
[2017-12-30 20:06] LABS: BASOPHILS % (AUTO) 0.5 % (0.0-2.0); EOSINOPHILS % (AUTO) 0.5 % (1.0-6.0); HEMATOCRIT 39.9 % (36-46); HEMOGLOBIN 13.2 g/dL (12.0-16.0); LYMPHOCYTES # (AUTO) 0.9 K/uL (1.0-4.8); LYMPHOCYTES % (AUTO) 13.3 % (22.0-44.0); MEAN CORPUSCULAR HEMOGLOBIN 31.1 pg (26.0-34.0); MEAN CORPUSCULAR HGB CONC 33.2 G/dL (31.0-37.0); MEAN CORPUSCULAR VOLUME 94 fL (80-100); MONOCYTES # (AUTO) 0.8 K/uL (0.1-1.0); MONOCYTES % (AUTO) 11.6 % (2.0-9.0); NEUTROPHILS % (AUTO) 74.1 % (40.0-70.0); PLATELET COUNT (AUTO) 172 K/uL (150-450); RED BLOOD CELL COUNT(AUTO) 4.26 MIL/uL (4.00-5.20)
[2017-12-30 20:16] LABS: ANION GAP 11 mmol/L (8-16); CALCIUM, TOTAL 9.2 mg/dL (8.8-10.5); CARBON DIOXIDE 28 mmol/L (22-29); CHLORIDE 103 mmol/L (98-107); CREATININE 0.76 mg/dL (0.60-1.30); GLOMERULAR FILTR. RATE CALC > 60 mL/min (>60); GLUCOSE,RANDOM 94 mg/dL (70-110); SODIUM SERUM 142 mmol/L (136-145); UREA NITROGEN, BLOOD 16 mg/dL (7-18)
[2017-12-30 20:43] LABS: ALANINE AMINOTRANSFERASE 43 U/L (12-78); ALBUMIN 3.9 g/dL (3.4-5.0); ALKALINE PHOSPHATASE 197 U/L (46-116); ASPARTATE AMINOTRANSFERASE 22 U/L (15-37); BILIRUBIN,TOTAL 0.2 mg/dL (0.1-1.0); CREATINE KINASE MB 2.5 ng/mL (0-5); CREATINE KINASE, TOTAL 169 U/L (26-192); TOTAL PROTEIN, SERUM 7.8 g/dL (6.4-8.2)
[2017-12-30] MEDS ORDERED: ACETAMINOPHEN 325 MG TABLET PO PRN ×2 (20:45→22:30)
[2017-12-30] MEDS ORDERED: ONDANSETRON HCL 4 MG/2 ML VIAL IVP PRN (20:45)
[2017-12-30] MEDS ORDERED: 0.9% SODIUM CHLORIDE 10 ML SYRINGE IVP PRN (20:45)
[2017-12-30 21:04] LABS: APPEARANCE,URINE CLEAR (CLEAR); BILIRUBIN,URINE NEGATIVE (NEGATIVE); GLUCOSE, URINE (UA) NEGATIVE (NEGATIVE); KETONES,URINE NEGATIVE (NEGATIVE); LEUKOCYTE ESTERASE ,URINE NEGATIVE (NEGATIVE); NITRATE,URINE NEGATIVE (NEGATIVE); OCCULT BLOOD,URINE NEGATIVE (NEGATIVE); PH,URINE 5.5 (5.0-8.0); PROTEIN,URINE NEGATIVE (NEGATIVE)
[2017-12-30 21:52] VITALS: BP 126/83
[2017-12-30] MEDS ORDERED: ALBUTEROL SULFATE 2.5 MG/0.5 ML NEB SOLUTION NEB PRN (22:30)
[2017-12-30] MEDS ORDERED: LORazepam 2 MG/ML VIAL IVP PRN (22:30)
[2017-12-30] MEDS ORDERED: MAGNESIUM HYDROXIDE SUSPENSION 30 ML UDCUP PO PRN (22:30)
[2017-12-31 00:30] VITALS: BP 100/64
[2017-12-31 05:00] VITALS: BP 119/73
[2017-12-31 07:43] VITALS: BP 119/74
[2017-12-31] MEDS: DOCUSATE SODIUM 100 MG CAPSULE PO SCH ×2 (08:14→20:59)
[2017-12-31] MEDS: HEPARIN SODIUM,PORCINE 5,000 UNITS/ML VIAL SQ SCH ×2 (08:14→21:00)
[2017-12-31] MEDS: PANTOPRAZOLE SODIUM 40 MG DR TABLET PO SCH (08:14)
[2017-12-31] MEDS: LevETIRAcetam 500 MG TABLET PO SCH ×2 (08:14→20:59)
[2017-12-31 11:14] VITALS: BP 133/84
[2017-12-31 13:48] LABS: AMPHET/METH SCREEN,URINE NEGATIVE (NEGATIVE); BARBITURATE SCREEN, URINE NEGATIVE (NEGATIVE); BENZODIAZEPINES SCREEN,URINE NEGATIVE (NEGATIVE); CANNABINOID SCREEN,URINE NEGATIVE (NEGATIVE); COCAINE SCREEN,URINE NEGATIVE (NEGATIVE); METHADONE SCREEN, URINE NEGATIVE (NEGATIVE); OPIATE SCREEN,URINE NEGATIVE (NEGATIVE)
[2017-12-31 13:50] LABS: PHENCYCLIDINE SCREEN,URINE NEGATIVE (NEGATIVE)
[2017-12-31 15:30] VITALS: BP 128/72
[2017-12-31 19:30] VITALS: BP 128/79
[2018-01-01 00:30] VITALS: BP 125/72
[2018-01-01 05:00] VITALS: BP 115/75
[2018-01-01 08:17] VITALS: BP 126/76
[2018-01-01] MEDS: DOCUSATE SODIUM 100 MG CAPSULE PO SCH (09:49)
[2018-01-01] MEDS: PANTOPRAZOLE SODIUM 40 MG DR TABLET PO SCH (09:49)
[2018-01-01] MEDS: LevETIRAcetam 500 MG TABLET PO SCH (09:49)
[2018-01-01] MEDS: HEPARIN SODIUM,PORCINE 5,000 UNITS/ML VIAL SQ SCH (09:50)
[2018-01-01 11:34] VITALS: BP 122/78
[2018-01-01] MEDS ORDERED: CHOLECALCIFEROL (VIT D3) 1,000 UNITS TABLET PO SCH (12:15)
== END 2018-01-01 16:18 | disposition home or self-care (01) | DRG 53 ==
LOC: EMS 18:41 → 6N 21:00
PROVIDERS: ADMIT Internal Medicine; ATTEND Internal Medicine
DX: G40.409 Other generalized epilepsy and epileptic syndromes, not intractable, without status epilepticus (principal); F20.9 Schizophrenia, unspecified; I10 Essential (primary) hypertension; E55.9 Vitamin D deficiency, unspecified; Z79.899 Other long term (current) drug therapy; R62.50 Unspecified lack of expected normal physiological development in childhood
CPT/HCPCS: 80307; 82306; 93005; J0712; J1644; J2060; J7060